=== PATIENT | female | born 1995 | race African-American/Black ===

== ENCOUNTER → 2018-09-19 16:52 | Outpatient (CLI) | payer OTHER, SELFPAY ==
--- NOTE | 2018-09-19 16:58 | DI.RAD.S_ITS ---
PROCEDURE: XR ANKLE RT MIN 3V INDICATIONS: fell, swelling and tenderness to lateral ankle TECHNIQUE: 3 views of the ankle were acquired. COMPARISON: None. FINDINGS: Bones: No fractures or dislocations. Ankle mortise is normally aligned. No suspicious bony lesions. Soft tissues: Mild swelling about the lateral malleolus No tibiotalar joint effusion. Achilles tendon appears normal. IMPRESSION: No acute osseous abnormality. Dictated by: Sami Darden M.D. on 09/19/2018 at 17:20 Approved by: Sami Darden M.D. on 09/19/2018 at 17:21
== END ==
PROVIDERS: Visit Provider Physician Assistant
DX: S99.911A Unspecified injury of right ankle, initial encounter (principal); W19.XXXA Unspecified fall, initial encounter
CPT/HCPCS: 73610